=== PATIENT | male | born 1985 | race Caucasian/White ===

== ENCOUNTER 2017-08-14 11:10 | Emergency (ER) | payer SELFPAY ==
[2017-08-14] MEDS ORDERED: OXYCODONE-ACETAMINOPHEN 5-325 MG TABLET PO ONE (12:21)
[2017-08-14] MEDS ORDERED: LIDOCAINE 2% JELLY 5 ML TUBE TOP ONE (12:28)
--- NOTE | 2017-08-14 12:28 | ER Document Report ---
ED Eye Complaint - General Chief Complaint: Eye Problem Stated Complaint: LEFT EYE SWELLING Time Seen by Provider: 08/14/17 12:10 Mode of Arrival: Ambulatory Information source: Patient Notes: Patient is a 31-year-old male who presents to the ER today for left dental pain and left eyelid swelling and redness that started today. Patient states that he usually has the dental pain but that it worsened today and that he noticed discharge from his left eye that was yellow in color. He denies any runny nose , sore throat, cough, fever or chills. He denies having a dentist. TRAVEL OUTSIDE OF THE [place] IN LAST 30 DAYS: No - Related Data Allergies/Adverse Reactions: steroids Allergy (Uncoded 08/14/17 11:12) Past Medical History - General Information source: Patient - Social History Smoking Status: Current Some Day Smoker Chew tobacco use (# tins/day): No Frequency of alcohol use: Occasional Drug Abuse: None Family History: Reviewed & Not Pertinent Patient has suicidal ideation: No Patient has homicidal ideation: No Renal/ Medical History: Denies: Hx Peritoneal Dialysis - Immunizations Immunizations up to date: Yes Hx Diphtheria, Pertussis, Tetanus Vaccination: Yes Review of Systems - Review of Systems Constitutional: No symptoms reported EENT: See HPI Cardiovascular: No symptoms reported Respiratory: No symptoms reported Gastrointestinal: No symptoms reported Genitourinary: No symptoms reported Male Genitourinary: No symptoms reported Musculoskeletal: No symptoms reported Skin: No symptoms reported Hematologic/Lymphatic: No symptoms reported Neurological/Psychological: No symptoms reported Physical Exam - Vital signs Vitals: Temp Pulse Resp BP Pulse Ox 98.8 F 61 16 122/62 98 08/14/17 11:20 08/14/17 11:20 08/14/17 11:20 08/14/17 11:20 08/14/17 11:20 - Notes Notes: PHYSICAL EXAMINATION: GENERAL: in no acute distress. HEAD: Atraumatic, normocephalic. EYES: Pupils equal round and reactive to light, extraocular movements intact, sclera anicteric, conjunctiva erythematous to left upper eyelid, watery drainage ENT: ear canals without erythema or foreign body, TMs pearly ayers with good bony landmarks, nares patent, oropharynx clear without exudates. Moist mucous membranes. Poor dentition, tender over lower left gumline, no erythema or abscess NECK: Normal range of motion, supple without lymphadenopathy LUNGS: CTAB and equal. No wheezes rales or rhonchi. HEART: Regular rate and rhythm without murmurs EXTREMITIES: Normal range of motion, no pitting edema. No cyanosis. NEUROLOGICAL: Cranial nerves grossly intact. Normal sensory/motor exams. PSYCH: Normal mood, normal affect. SKIN: Warm, Dry, normal turgor, no rashes or lesions noted - HEENT Visual acuity- Right eye: 20/30 Visual acuity- Left eye: 20/25 Visual acuity- Both eyes: 20/25 Corrective lenses worn: No Course - Vital Signs Vital signs: Temp Pulse Resp BP Pulse Ox 97.8 F 64 16 128/53 H 98 08/14/17 12:56 08/14/17 12:56 08/14/17 12:56 08/14/17 12:56 08/14/17 12:56 Discharge - Discharge Clinical Impression: Dental infection Conjunctivitis Qualifiers: Conjunctivitis type: blepharoconjunctivitis Blepharoconjunctivitis type: unspecified Laterality: left Qualified Code(s): H10.502 - Unspecified blepharoconjunctivitis, left eye Condition: Stable Disposition: HOME, SELF-CARE Instructions: Conjunctivitis ([facility]), Eyedrop Use ([facility]) Additional Instructions: Return immediately for any new or worsening symptoms. Follow up with dentist r, call tomorrow to make followup appointment. Prescriptions: Amoxicillin 500 mg PO TID #30 capsule Polymyxin B Sulfate/Tmp [Polytrim Oph Soln 10 ml] 1 dose OS Q3 #1 bottle Forms: Return to Work
[2017-08-14 13:00] VITALS: BP 128/53
== END 2017-08-14 13:00 | disposition home or self-care (01) ==
LOC: ER 11:10
DX: K04.7 Periapical abscess without sinus (principal); H10.502 Unspecified blepharoconjunctivitis, left eye; F17.200 Nicotine dependence, unspecified, uncomplicated
CPT/HCPCS: 99282